=== PATIENT | female | born 1935 | race Caucasian/White ===

== ENCOUNTER → 2023-05-22 11:21 | Outpatient (REF) | payer OTHER, SELFPAY ==
[2023-05-22 12:08] LABS: % Basophils 0.9 % (0-2); % Eosinophils 3.2 % (0-6); % Immature Granulocytes 0.3 % (0-0.5); % Lymphocytes 25.2 % (20.5-51.1); % Monocytes 10.3 % (1.7-9.3); % Neutrophils 60.1 % (42.2-75.2); ALT (SGPT) 12 U/L (0-35); AST (SGOT) 23 U/L (14-36); Absolute Basophils 0.1 10^3/uL (0-0.2); Absolute Eosinophils 0.2 10^3/uL (0-0.7); Absolute Lymphocytes 1.9 10^3/uL (1.2-3.4); Absolute Monocytes 0.8 10^3/uL (0.1-0.6); Absolute Neutrophils 4.5 10^3/uL (1.4-6.5); Albumin 3.5 g/dl (3.5-5.0); Alkaline Phosphatase 67 U/L (38-126); Blood Urea Nitrogen 16 mg/dl (7-17); Calcium 9.1 mg/dl (8.4-10.2); Carbon Dioxide 22 mmol/L (22-30); Chloride 106 mmol/L (98-107); Glucose 96 mg/dl (70-99); HDL Cholesterol 53 mg/dl; Hematocrit 35.6 % (37.0-47.0); Hemoglobin 11.5 g/dL (12.0-16.0); LDL Cholesterol, Calculated 57 mg/dl; Mean Corp Hgb Conc. 32.3 g/dL (33.0-37.0); Mean Corpuscular Hgb 31.6 pg (27.0-31.0); Mean Corpuscular Volume 97.8 fL (81.0-99.0); Mean Platelet Volume 10.4 fL (7.4-10.4); Nucleated Red Blood Cells % 0 %; Platelet Count 233 10^3/uL (130-400); Potassium 4.1 mmol/L (3.5-5.1); Red Blood Cell Count 3.64 10^6/uL (4.20-5.40); Red Cell Dist. Width 14.5 % (11.5-14.5); Sodium 137 mmol/L (135-145); Total Bilirubin 0.6 mg/dl (0.2-1.3); Total Cholesterol 128 mg/dl (50-199); Total Protein 6.1 g/dl (6.3-8.2); Triglyceride 93 mg/dl (10-149); Very Low Density Lipoprotein 18 mg/dl (0-30); White Blood Cell Count 7.5 10^3/uL (4.8-10.8); eGFR > 60.00
[2023-05-22 12:24] LABS: Vitamin D, 25-OH*** 39.3 ng/mL (30-80)
== END ==
LOC: OLABN 11:21
PROVIDERS: ATTENDING PHYSICIAN Internal Medicine Geriatric Medicine
DX: E55.9 Vitamin D deficiency, unspecified (principal); I10 Essential (primary) hypertension; I50.32 Chronic diastolic (congestive) heart failure
CPT/HCPCS: 36415; 80053; 80061; 82306; 85025

== ENCOUNTER → 2023-09-11 16:13 | Outpatient (REF) | payer OTHER, SELFPAY ==
[2023-09-11 18:33] LABS: Urine Albumin 1+ (Neg - Trace); Urine Bilirubin 2+ (Negative); Urine Character Slightly Cloudy (Clear); Urine Color Amber; Urine Glucose Negative (Negative); Urine Ketone 1+ (Negative); Urine Leukocyte 1+ (Negative); Urine Nitrite Positive (Negative); Urine Occult Blood 4+ (Negative); Urine Specific Gravity 1.025 (<1.030); Urine Urobilinogen 1+ (Neg - 1+)
[2023-09-11 18:39] LABS: Urine White Cell 16-20 /HPF (0-5)
[2023-09-11 18:40] LABS: Urine Bacteria Many (Negative)
== END ==
LOC: OLABN 16:13
PROVIDERS: ATTENDING PHYSICIAN Internal Medicine Geriatric Medicine
DX: R30.9 Painful micturition, unspecified (principal); R35.0 Frequency of micturition
CPT/HCPCS: 81003; 81015; 87077; 87086; 87186

== ENCOUNTER 2023-09-13 13:24 | Inpatient (IN) | payer OTHER, SELFPAY ==
[2023-09-13] VITALS (8 sets, daily range): BP systolic 108–131; BP diastolic 59–91
--- NOTE | 2023-09-13 10:51 | ED.GENMED ---
History of Present Illness
<Julita George PA-C - Last Filed: 09/13/23 13:19>
General
Chief Complaint: Change in Mental Status
Source: patient and family (daughter)
Exam Limitations: altered mental status
Time Seen by Provider: 09/13/23 10:37
History of Present Illness
History of Present Illness:
87yoF with a history of dementia, atrial fibrillation on Eliquis, CHF, COPD not on home oxygen, hypertension, hyperlipidemia presenting via EMS with her daughter for evaluation of altered mental status. Patient is a resident at [facility]
skilled nursing. Symptoms initially started 1 week ago. Daughter states that at baseline, patient remembers staff names and is interactive but is forgetful at times. Over the past week, patient has become increasingly confused. She is also less
interactive and having hallucinations which are new for her. The nursing facility checked a urinalysis 2 days ago which indicated a UTI. She was started on Macrobid yesterday and she has had 2 doses thus far. Urine culture from 09/11/23 has returned
growing Klebsiella with resistance to Macrobid. No reported fevers. Patient has no complaints at this time.
Past History
<Julita George PA-C - Last Filed: 09/13/23 13:19>
Past History
ED Past Medical History: Arrthythmia (afib on eliquis), CAD, CHF, COPD, HTN, Hypercholesterolemia and Other (nonischemic cardiomyopathy)
ED Past Surgical History: None and Orthopedic; Negative Cardiac
Social History
Tobacco: Former smoker
Alcohol: Occasional
Drug: None
Personal:
Living: skilled nursing
Employment: Retired
Family History
Family History: Other (Mother with CAD)
Review of Systems
<Julita George PA-C - Last Filed: 09/13/23 13:19>
Review of Systems
Unable to obtain full review of systems at this time due to: other (AMS)
Phy Exam
<Julita George PA-C - Last Filed: 09/13/23 13:19>
General Physical Exam
General Presentation: no apparent distress
General Skin: warm and dry
General Habitus: elderly
Cardiovascular Exam
Cardiovascular Exam: irregularly irregular and tachycardia
Pulmonary Exam
Pulmonary Exam: generalized wheezing (Decreased breath sounds with faint expiratory wheezes. Mild increased WOB.)
Respirations: mild increase in effort
Neurological Exam
Neurological Exam: alert (Oriented to person. Able to state and nursing facility where she resides. Not oriented to time or place. )
Course
<Julita George PA-C - Last Filed: 09/13/23 13:19>
Orders/Labs/Results
Orders:
Orders
09/13/23 10:33
Electrocardiogram (*1) Urgent
Reason for Study: Tachycardia
EKG- Treatment ONCE
09/13/23 10:56
Cardiac Monitoring- Treatment ONCE
Straight cath- Treatment ONCE
0.9% Sodium Chloride 1000 ml [Nss] 1,000 ml IV BOLUS
Pulse Ox/cont/shift [RESP] Urgent
Quantity: 1
09/13/23 10:57
CR Chest Portable - 1 View Urgent
Comment:
Reason For Exam: AMS, hypoxia
Reason Study Needs to be Portable: Unable to Transport
09/13/23 11:00
CT Head W/o Iv Contrast Urgent
Comment:
Reason For Exam: AMS
09/13/23 11:07
Complete Blood Count/With Diff Urgent
Lactic Acid Q4H
Comment: CANCEL 2nd LACTIC ACID IF 1st LACTIC ACID IS LESS THAN 2
09/13/23 11:08
Ammonia Urgent
CMP [Comprehensive Metabolic Panel] Urgent
PTT Urgent
Prothrombin Time Urgent
Troponin I Urgent
Venous Blood Gas Urgent
%Oxygen/Room Air: 2L
Blood Culture Q30M
KEISHA Source: Blood/Venous
Specimen Description:
09/13/23 11:35
Urinalysis Reflex To Culture Urgent
Date Specimen was Collected: 09/13/23
Time Specimen was Collected: 11:23
Urine Microscopic Reflex Cult Urgent
Blood Culture Q30M
KEISHA Source: Blood/Venous
Specimen Description:
Urine Culture Urgent
KEISHA Source: U
Specimen Description:
Date Specimen was Collected: 09/13/23
Time Specimen was Collected: 11:23
09/13/23 12:16
CefTRIAXone [Rocephin] 1,000 mg IV NOW STA
09/13/23 12:37
Cefepime HCl [Maxipime] 2,000 mg IV NOW STA
09/13/23 12:51
Admit/Transfer Patient As Directed
Co-Sign Provider:
Level of Care: Inpatient admission
Assign to:: Medical/Surgical
Physician / Group: Hospitalist
Diagnosis: Confusion
Reason for Hospitalization: .
Expected length of stay greater than two midnights?: Yes
ELOS- Estimated Length of Stay in days: 3
I certify the patient meets the requirements for IP care: Yes
09/13/23 15:00
Lactic Acid Q4H
Comment: CANCEL 2nd LACTIC ACID IF 1st LACTIC ACID IS LESS THAN 2
Abnormal Lab Results
09/13/23 09/13/23 09/13/23
11:07 11:08 11:35
WBC 14.4 H 10^3/uL
(4.8-10.8)
RBC 3.96 L 10^6/uL
(4.20-5.40)
MCH 32.3 H pg
(27.0-31.0)
RDW 15.6 H %
(11.5-14.5)
MPV 11.2 H fL
(7.4-10.4)
Abs Immat Gran (auto) 0.1 H 10^3/uL
(0-0.05)
Absolute Neuts (auto) 12.2 H 10^3/uL
(1.4-6.5)
Absolute Lymphs (auto) 1.0 L 10^3/uL
(1.2-3.4)
Absolute Monos (auto) 1.0 H 10^3/uL
(0.1-0.6)
Immature Gran % 0.6 H %
(0-0.5)
Neutrophils % 84.8 H %
(42.2-75.2)
Lymphocytes % 7.1 L %
(20.5-51.1)
PT 23.6 H Sec
(11.4-14.6)
VBG pO2 63 H mmHg
(30-50)
VBG HCO3 21.6 L mmol/L
(22-27)
Chloride 114 H mmol/L
(98-107)
Carbon Dioxide 21 L mmol/L
(22-30)
BUN 34 H mg/dl
(7-17)
Glucose 123 H mg/dl
(70-99)
Lactic Acid 2.5 H mmol/L
(0.7-2.0)
Total Bilirubin 1.9 H mg/dl
(0.2-1.3)
AST 62 H U/L
(14-36)
Ammonia < 9 L umol/L
(9-30)
Troponin I 0.316 H* ng/ml
Urine Ketones 1+ A
(Negative)
Ur Occult Blood Reflex 3+ A
(Negative)
Urine Nitrite (Reflex) Positive A
(Negative)
Urine Bilirubin 2+ A
(Negative)
Urine Urobilinogen 2+ A
(Neg - 1+)
Leukocyte Esterase Rfl 2+ A
(Negative)
Urine RBC 3-6 A /HPF
(0-2)
Urine WBC (Reflex) 60-70 A /HPF
(0-5)
Urine Bacteria (Reflex) Moderate A
(Negative)
09/13/23 11:07
09/13/23 11:08
Vital Signs
Initial and Last Documented VS:
Initial Vital Signs
Temp Pulse Resp BP Pulse Ox
98.9 F 114 26 108/85 93
09/13/23 10:20 09/13/23 10:20 09/13/23 10:20 09/13/23 10:20 09/13/23 10:20
Last Documented Vital Signs
Temp Pulse Resp BP Pulse Ox
98.9 F 106 25 108/85 96
09/13/23 10:20 09/13/23 10:54 09/13/23 10:54 09/13/23 10:20 09/13/23 10:54
<Manjit Medrano MD - Last Filed: 09/13/23 13:25>
Orders/Labs/Results
Orders:
Orders
09/13/23 10:33
Electrocardiogram (*1) Urgent
Reason for Study: Tachycardia
EKG- Treatment ONCE
09/13/23 10:56
Cardiac Monitoring- Treatment ONCE
Straight cath- Treatment ONCE
0.9% Sodium Chloride 1000 ml [Nss] 1,000 ml IV BOLUS
Pulse Ox/cont/shift [RESP] Urgent
Quantity: 1
09/13/23 10:57
CR Chest Portable - 1 View Urgent
Comment:
Reason For Exam: AMS, hypoxia
Reason Study Needs to be Portable: Unable to Transport
09/13/23 11:00
CT Head W/o Iv Contrast Urgent
Comment:
Reason For Exam: AMS
09/13/23 11:07
Complete Blood Count/With Diff Urgent
Lactic Acid Q4H
Comment: CANCEL 2nd LACTIC ACID IF 1st LACTIC ACID IS LESS THAN 2
09/13/23 11:08
Ammonia Urgent
CMP [Comprehensive Metabolic Panel] Urgent
PTT Urgent
Prothrombin Time Urgent
Troponin I Urgent
Venous Blood Gas Urgent
%Oxygen/Room Air: 2L
Blood Culture Q30M
KEISHA Source: Blood/Venous
Specimen Description:
09/13/23 11:35
Urinalysis Reflex To Culture Urgent
Date Specimen was Collected: 09/13/23
Time Specimen was Collected: 11:23
Urine Microscopic Reflex Cult Urgent
Blood Culture Q30M
KEISHA Source: Blood/Venous
Specimen Description:
Urine Culture Urgent
KEISHA Source: U
Specimen Description:
Date Specimen was Collected: 09/13/23
Time Specimen was Collected: 11:23
09/13/23 12:16
CefTRIAXone [Rocephin] 1,000 mg IV NOW STA
09/13/23 12:37
Cefepime HCl [Maxipime] 2,000 mg IV NOW STA
09/13/23 12:51
Admit/Transfer Patient As Directed
Co-Sign Provider:
Level of Care: Inpatient admission
Assign to:: Medical/Surgical
Physician / Group: Hospitalist
Diagnosis: Confusion
Reason for Hospitalization: .
Expected length of stay greater than two midnights?: Yes
ELOS- Estimated Length of Stay in days: 3
I certify the patient meets the requirements for IP care: Yes
09/13/23 15:00
Lactic Acid Q4H
Comment: CANCEL 2nd LACTIC ACID IF 1st LACTIC ACID IS LESS THAN 2
Abnormal Lab Results
09/13/23 09/13/23 09/13/23
11:07 11:08 11:35
WBC 14.4 H 10^3/uL
(4.8-10.8)
RBC 3.96 L 10^6/uL
(4.20-5.40)
MCH 32.3 H pg
(27.0-31.0)
RDW 15.6 H %
(11.5-14.5)
MPV 11.2 H fL
(7.4-10.4)
Abs Immat Gran (auto) 0.1 H 10^3/uL
(0-0.05)
Absolute Neuts (auto) 12.2 H 10^3/uL
(1.4-6.5)
Absolute Lymphs (auto) 1.0 L 10^3/uL
(1.2-3.4)
Absolute Monos (auto) 1.0 H 10^3/uL
(0.1-0.6)
Immature Gran % 0.6 H %
(0-0.5)
Neutrophils % 84.8 H %
(42.2-75.2)
Lymphocytes % 7.1 L %
(20.5-51.1)
PT 23.6 H Sec
(11.4-14.6)
VBG pO2 63 H mmHg
(30-50)
VBG HCO3 21.6 L mmol/L
(22-27)
Chloride 114 H mmol/L
(98-107)
Carbon Dioxide 21 L mmol/L
(22-30)
BUN 34 H mg/dl
(7-17)
Glucose 123 H mg/dl
(70-99)
Lactic Acid 2.5 H mmol/L
(0.7-2.0)
Total Bilirubin 1.9 H mg/dl
(0.2-1.3)
AST 62 H U/L
(14-36)
Ammonia < 9 L umol/L
(9-30)
Troponin I 0.316 H* ng/ml
Urine Ketones 1+ A
(Negative)
Ur Occult Blood Reflex 3+ A
(Negative)
Urine Nitrite (Reflex) Positive A
(Negative)
Urine Bilirubin 2+ A
(Negative)
Urine Urobilinogen 2+ A
(Neg - 1+)
Leukocyte Esterase Rfl 2+ A
(Negative)
Urine RBC 3-6 A /HPF
(0-2)
Urine WBC (Reflex) 60-70 A /HPF
(0-5)
Urine Bacteria (Reflex) Moderate A
(Negative)
09/13/23 11:07
09/13/23 11:08
Vital Signs
Initial and Last Documented VS:
Initial Vital Signs
Temp Pulse Resp BP Pulse Ox
98.9 F 114 26 108/85 93
09/13/23 10:20 09/13/23 10:20 09/13/23 10:20 09/13/23 10:20 09/13/23 10:20
Last Documented Vital Signs
Temp Pulse Resp BP Pulse Ox
98.9 F 106 25 108/85 96
09/13/23 10:20 09/13/23 10:54 09/13/23 10:54 09/13/23 10:20 09/13/23 10:54
Dklt;Julita George PA-C - Last Filed: 09/13/23 13:19>
MDM/Problems Addressed
Differential Diagnosis Includes:
87yoF presenting from her nursing facility for AMS x 1 week. Recently diagnosed with a UTI and currently on Macrobid. Also hypoxic to 89% prehospital and arrives on 2L NC. Patient with no complaints at this time. HR 114 on arrival. BP stable and she
is afebrile. Patient is oriented to person only. Mild increased WOB with wheezing and decreased air movement noted. Differential diagnosis includes but is not limited to: UTI, sepsis, pneumonia, hypercapnia, electrolyte abnormality
Initial ED plan: Check septic workup, UA, troponin/EKG, CXR, and CT head. IV fluid bolus.
<Julita George PA-C - Last Filed: 09/13/23 13:19>
*EKG
Interpreted by ED Provider?: Yes
EKG Intrepretation Date: 09/13/23
Heart Rate: 129
Rate: tachycardiac
Rhythm: a-fib
[place]: left axis deviation
Ischemia: non-specific ST changes
*Critical Care Note
Total Time (30-74mins, 75-104mins- exclusive of procedures): Not Applicable
Data Reviewed
Review of Other/Old Records Reveals: Labs (Reviewed urine culture data from 2 days ago.)
<Julita George PA-C - Last Filed: 09/13/23 13:19>
Update Note
Update Note:
UA consistent with a UTI. Right sided infilrate also seen on CXR, formal radiology read pending. White count and lactate elevated. Mild elevation in troponin noted, likely demand from sepsis and afib with RVR. IV cefepime given and patient admitted
for further management.
ED Attending Note
<Julita George PA-C - Last Filed: 09/13/23 13:19>
-
Portions of this chart may have been created with voice recognition software.� Occasional wrong word or��sound alike� substitutions may have occurred due to the inherent limitations of voice recognition software.
<Manjit Medrano MD - Last Filed: 09/13/23 13:25>
ED Attending Note
Patient seen and examined by attending physician: Yes
I performed the substantive portion of visit, reviewed & personally made and approve the management plan that is documented in note by myself or SUNITA.: Yes
ED Attending Note:
Patient with progressive weakness lethargy over the past week. Started treatment for UTI yesterday. Some mild hypoxia.
On exam patient is nontoxic in no distress. She is alert but mildly confused. Warm and dry perfusing well. Mild expiratory wheezing. . Warm and dry. Grossly nonfocal. Irregular irregular. Tachycardic
EKG A-fib RVR. Nonspecific changes. CT head negative. Urine positive leukocytosis. Troponin indeterminate likely secondary to sepsis. All consistent with urosepsis. Admission for further care
Discharge Plan
Departure
Patient Disposition: Admit
Date of Disposition: 09/13/23
Time of Disposition: 12:56
Admit to: Med/Surg
Admit to doctor: Dr. Venegas
Presentation/result/management discussed w/ accepting MD/DO: Hospitalist
Discharge Problem:
Sepsis, Urinary tract infection, Elevated troponin I level, Altered mental status, Acute hypoxemic respiratory failure
Prescriptions:
No Action
acetaminophen [Tylenol Extra Strength] 500 MG tablet
1,000 mg PO TID
isosorbide mononitrate 30 MG tablet extended release 24 hr
30 mg PO DAILY
magnesium hydroxide 30 ML suspension
30 ml PO HSPRN PRN (Reason: CONSTIPATION)
bisacodyl [OneLAX Bisacodyl] 10 MG suppository
10 mg AR [id number] PRN (Reason: MOM/LACTULOSE INEFFECTIVE)
metoprolol succinate 100 MG tablet extended release 24 hr
50 mg PO DAILY
escitalopram oxalate 10 mg Tablet
10 mg PO DAILY
diclofenac sodium [Voltaren] 1 % Gel
2 g TOPICAL BID
Eliquis 2.5 mg Tablet
2.5 mg PO BID
diltiazem HCl 120 MG capsule,extended release 24hr
120 mg PO DAILY
sennosides [senna] 8.6 mg Tablet
17.2 mg PO QPM
polyethylene glycol 3350 [Miralax] 17 gram Powder In Packet
17 g PO DAILY
atorvastatin [Lipitor] 10 mg Tablet
10 mg PO HS
famotidine [Pepcid] 20 mg Tablet
20 mg PO DAILY
nitroglycerin [Nitrostat] 0.4 mg Tablet, Sublingual
0.4 mg SUBLINGUAL [id number] PRN (Reason: chest pain)
nitrofurantoin monohyd/m-cryst [Macrobid] 100 mg Capsule
100 mg PO BID
duloxetine [Cymbalta] 30 mg Capsule,Delayed Release(Dr/Ec)
30 mg PO DAILY
cholecalciferol (vitamin D3) 1,250 mcg (50,000 unit) Tablet
1,250 mcg PO QMONTH
Rx Instructions:
every Monday
Gemtesa 75 mg Tablet
75 mg PO QPM
Referrals:
Rodríguez Rock MD [Family Provider] -
Discharge Date and Time
Print Language: TOGOLESE
[2023-09-13] MEDS: NSS 1000 IV ×2 (11:11→14:40)
[2023-09-13 11:22] LABS: % Basophils 0.5 % (0-2); % Eosinophils 0.1 % (0-6); % Immature Granulocytes 0.6 % (0-0.5); % Lymphocytes 7.1 % (20.5-51.1); % Monocytes 6.9 % (1.7-9.3); % Neutrophils 84.8 % (42.2-75.2); Absolute Basophils 0.1 10^3/uL (0-0.2); Absolute Immature Granulocytes 0.1 10^3/uL (0-0.05); Absolute Neutrophils 12.2 10^3/uL (1.4-6.5); Hematocrit 38.7 % (37.0-47.0); Hemoglobin 12.8 g/dL (12.0-16.0); Mean Corp Hgb Conc. 33.1 g/dL (33.0-37.0); Mean Corpuscular Hgb 32.3 pg (27.0-31.0); Mean Corpuscular Volume 97.7 fL (81.0-99.0); Mean Platelet Volume 11.2 fL (7.4-10.4); Nucleated Red Blood Cells % 0.3 %; Platelet Count 185 10^3/uL (130-400); Red Blood Cell Count 3.96 10^6/uL (4.20-5.40); Red Cell Dist. Width 15.6 % (11.5-14.5); White Blood Cell Count 14.4 10^3/uL (4.8-10.8)
[2023-09-13 11:30] LABS: Venous Blood Gas B.E. -3.9 mmol/L (-4 to +4); Venous Blood Gas HCO3 21.6 mmol/L (22-27); Venous Blood Gas O2 Sat % 91.6 %; Venous Blood Gas pCO2 40 mmHg (35-48); Venous Blood Gas pH 7.34 (7.32-7.43); Venous Blood Gas pO2 63 mmHg (30-50)
[2023-09-13 11:32] LABS: INR 2.08; PT 23.6 Sec (11.4-14.6)
[2023-09-13 11:33] LABS: APTT 29.7 Sec (23.4-35.0)
[2023-09-13 11:36] LABS: ALT (SGPT) 30 U/L (0-35); AST (SGOT) 62 U/L (14-36); Albumin 3.9 g/dl (3.5-5.0); Alkaline Phosphatase 74 U/L (38-126); Blood Urea Nitrogen 34 mg/dl (7-17); Calcium 9.5 mg/dl (8.4-10.2); Carbon Dioxide 21 mmol/L (22-30); Chloride 114 mmol/L (98-107); Glucose 123 mg/dl (70-99); Potassium 3.9 mmol/L (3.5-5.1); Sodium 145 mmol/L (135-145); Total Bilirubin 1.9 mg/dl (0.2-1.3); Total Protein 6.6 g/dl (6.3-8.2); eGFR > 60.00
[2023-09-13 11:49] LABS: Troponin I 0.316 ng/ml
[2023-09-13 11:50] LABS: Lactic Acid 2.5 mmol/L (0.7-2.0)
[2023-09-13 11:51] LABS: Urine Albumin Trace (Neg - Trace); Urine Bilirubin 2+ (Negative); Urine Character Clear (Clear); Urine Color Yellow; Urine Glucose Negative (Negative); Urine Ketone 1+ (Negative); Urine Leukocyte 2+ (Negative); Urine Nitrite Positive (Negative); Urine Occult Blood 3+ (Negative); Urine Specific Gravity 1.025 (<1.030); Urine Urobilinogen 2+ (Neg - 1+)
[2023-09-13 11:55] LABS: Ammonia < 9 umol/L (9-30)
[2023-09-13 12:13] LABS: Urine Bacteria Moderate (Negative); Urine Calcium Oxalate Crystals Seen; Urine White Cell 60-70 /HPF (0-5)
--- NOTE | 2023-09-13 12:51 | HPS.HSE ---
Family Physician
-
Family Physician: Rodríguez Rock
Chief Complaint
-
Change in mental status
History of Present Illness
87 years old female came in from retirement facility, [facility]. History taken from family at bedside. Patient has been acting weird per family for a week or so. She was not taking her medications and seeing objects. Lethargic with
decrease in alertness noticed in last a few days. Urine specimen was taken few days ago, cloudy brown in color. Started empirically on Macrobid and she took 2 doses only. In the ER, she was found to have leukocytosis, lactic acidosis, drowsiness,
atrial fibrillation with rapid ventricular response. Bladder scan and straight catheterization drained 50 cc of nicolas-colored urine.
Medical History
Past Medical History
Past Medical History: Reports Other (History of short memory loss/dementia, depression, COPD, hypertension, atrial fibrillation, overactive bladder, coronary artery disease, chronic heart failure with a preserved ejection fraction)
Past Surgical History: Reports Other (No recent major surgery)
Social History
Unable to obtain full social history at this time due to: Dementia
Drug: Former User (Per family)
Personal:
Living: Longterm
Family History
Family History: Not pertinent
Allergies / Home Medications
Allergies reflects when Allergies were last updated in [facility].
Home Medications with original date entered in [facility] [facility]
Allergy/Medication List:
Allergies
Allergy/AdvReac Type Severity Reaction Status Date / Time
No Known Allergies Allergy Verified 09/13/23 10:32
Home Medications
acetaminophen 500 mg tablet (Tylenol Extra Strength) 1,000 mg PO TID Pain 03/18/19
bisacodyl 10 mg rectal suppository (OneLAX Bisacodyl) 10 mg NC [id number] PRN MOM/LACTULOSE INEFFECTIVE 07/08/21
isosorbide mononitrate 30 mg tablet,extended release 24 hr 30 mg PO DAILY Heart disease/condition 07/08/21
magnesium hydroxide 400 mg/5 mL oral suspension 30 ml PO HSPRN PRN CONSTIPATION 07/08/21
metoprolol succinate 100 mg tablet,extended release 24 hr 50 mg PO DAILY Blood pressure 07/08/21
apixaban 2.5 mg tablet (Eliquis) 2.5 mg PO BID Blood clot prevention/tx 03/23/22
diclofenac sodium 1 % topical gel 2 g topical BID TO LOWER BACK FOR PAIN 03/23/22
diltiazem HCl 120 mg capsule,extended release 24 hr 120 mg PO DAILY Blood pressure 03/23/22
escitalopram oxalate 10 mg tablet 10 mg PO DAILY Mental Health/Anxiety 03/23/22
atorvastatin 10 mg tablet (Lipitor) 10 mg PO HS 09/13/23
cholecalciferol (vitamin D3) 1,250 mcg (50,000 unit) tablet 1,250 mcg PO QMONTH 09/13/23
duloxetine 30 mg capsule,delayed release (Cymbalta) 30 mg PO DAILY 09/13/23
famotidine 20 mg tablet (Pepcid) 20 mg PO DAILY 09/13/23
nitrofurantoin monohydrate/macrocrystals 100 mg capsule (Macrobid) 100 mg PO BID uti 09/13/23
nitroglycerin 0.4 mg sublingual tablet (Nitrostat) 0.4 mg sublingual [id number] PRN chest pain 09/13/23
polyethylene glycol 3350 17 gram oral powder packet (Miralax) 17 g PO DAILY 09/13/23
sennosides 8.6 mg tablet (senna) 17.2 mg PO QPM 09/13/23
vibegron 75 mg tablet (Gemtesa) 75 mg PO QPM 09/13/23
Review of Systems
-
Unable to obtain full review of systems at this time due to: Other (Patient is lethargic but she denied abdominal pain or chest pain)
Physical Exam
Vital Signs
Vital Signs
Temp Pulse Resp BP Pulse Ox
98.9 F 106 25 108/85 96
06/26/24 10:20 09/13/23 10:54 09/13/23 10:54 09/13/23 10:20 09/13/23 10:54
Physical Exam
General: No Apparent Distress and Appears Chronically Ill
HEENT: Other (Dry mucous membrane)
Respiratory: Decreased Breath Sounds
Cardiac: S1/S2, Irregular Rhythm and Tachycardia
GI: Soft, Non Tender and Non Distended
Rectal: No Maroon Stools
Genito-urinary: No Bloody Urine
Musculoskeletal: No Clubbing, No Cyanosis and No Edema
Skin: No Jaundice
Neuro: Other ( Patient is lethargic. At 1 point she woke up and answered simple questions but was mostly drowsy)
Psych: Other (Lethargic)
Laboratory Results
-
09/13/23 11:07
09/13/23 11:08
Laboratory Results
PT 23.6 Sec (11.4-14.6) H 09/13/23 11:08
INR 2.08 09/13/23 11:08
APTT 29.7 Sec (23.4-35.0) 09/13/23 11:08
Lactic Acid 2.5 mmol/L (0.7-2.0) H 09/13/23 11:07
Total Bilirubin 1.9 mg/dl (0.2-1.3) H 09/13/23 11:08
AST 62 U/L (14-36) H 09/13/23 11:08
ALT 30 U/L (0-35) 09/13/23 11:08
Alkaline Phosphatase 74 U/L (38-126) 09/13/23 11:08
Troponin I 0.316 ng/ml H* 09/13/23 11:08
Impression/Plan
-
87-year-old female present with change in mental status
#Severe sepsis with lactic acidosis
Patient presented with leukocytosis, tachycardia, lactic acidosis, evidence of urinary tract infection, encephalopathy
Admit the patient to the hospital
Continuous cardiac telemetry monitoring
Give the patient IV fluid as patient is a clinically dehydrated has not been eating well for a few days with poor oral intake. No hypotension in the emergency room but her blood pressure is borderline low
Trend lactic acidosis
Blood and urine culture
Empiric intravenous cefepime pending results of the culture as source likely urinary tract infection. Patient denied abdominal pain. Bladder scan did not show retention
Monitor response, monitor temperature curve
Hold oral intake due to risk of aspiration from encephalopathy
# Toxic metabolic encephalopathy on underlying cognitive impairment
History of dementia, likely Alzheimer versus vascular dementia
Supportive care
Aspiration precaution
Treated primary infection
Scan of the head no acute finding
# Permanent atrial fibrillation with rapid ventricular response.
Patient was not taking her medications due to acute illness
Due to risk of aspiration, hold oral medications. Start the patient on intravenous Cardizem with cardiac monitoring and titration of medicine as blood pressure tolerates
She was not taking her pills appropriately. Will do IV heparin while n.p.o.
Resume Eliquis when possible.
CHADSVASC 5 ( age,HTN, female,CHF) on Eliquis in outpatient setting
# History of coronary artery disease. No chest pain. No acute ischemic changes on EKG. Trend troponin. Troponin elevation consistent with nonmyocardial infarction
# History of chronic heart failure with preserved ejection fraction. Currently she is dehydrated clinically
Give mild IV fluids and reassess.
# Essential hypertension. Hold oral medication. She will be on IV Cardizem.
# Chronic ambulatory dysfunction. Uses wheelchair
# CODE STATUS. DNR, confirmed with family
Total critical time spent to see the patient on the floor, examine the patient, review data and lab results, discuss treatment plan with patient, ER doctor, family, nursing staff around 85 minutes
[2023-09-13] MEDS: MAXIPIME 2000 MG IV (13:24)
[2023-09-13 16:36] LABS: Hematocrit 36.9 % (37.0-47.0); Hemoglobin 11.8 g/dL (12.0-16.0); Mean Corpuscular Hgb 32.8 pg (27.0-31.0); Mean Corpuscular Volume 102.5 fL (81.0-99.0); Mean Platelet Volume 11.2 fL (7.4-10.4); Platelet Count 154 10^3/uL (130-400); Red Cell Dist. Width 15.7 % (11.5-14.5); White Blood Cell Count 13.5 10^3/uL (4.8-10.8)
[2023-09-13 16:47] LABS: APTT 32.4 Sec (23.4-35.0)
[2023-09-13] MEDS: D5/0.9% SODIUM CHLORIDE 1000 IV (17:59)
[2023-09-13] MEDS: HEPARIN 25000 UNITS/250 ML IV (18:02)
[2023-09-13] MEDS: CARDIZEM 125 IV (18:02)
[2023-09-13 21:14] LABS: Troponin I 0.263 ng/ml
[2023-09-14] VITALS (7 sets, daily range): BP systolic 109–139; BP diastolic 63–87; PULSE 100; O2SAT 98
[2023-09-14 00:26] LABS: APTT 109.7 Sec (23.4-35.0)
[2023-09-14] MEDS: MAXIPIME 1000 MG IV ×2 (01:35→13:32)
[2023-09-14] MEDS: STERILE WATER FOR INJECTION 10 ML IV ×2 (01:40→13:32)
[2023-09-14] MEDS: D5/0.9% SODIUM CHLORIDE 1000 IV (06:03)
[2023-09-14 07:18] LABS: APTT 129.7 Sec (23.4-35.0)
[2023-09-14 08:26] LABS: Hematocrit 35.9 % (37.0-47.0); Mean Corp Hgb Conc. 33.4 g/dL (33.0-37.0); Mean Corpuscular Hgb 32.8 pg (27.0-31.0); Mean Corpuscular Volume 98.1 fL (81.0-99.0); Mean Platelet Volume 11.2 fL (7.4-10.4); Platelet Count 162 10^3/uL (130-400); Red Blood Cell Count 3.66 10^6/uL (4.20-5.40); Red Cell Dist. Width 15.9 % (11.5-14.5); White Blood Cell Count 12.3 10^3/uL (4.8-10.8)
--- NOTE | 2023-09-14 08:30 | PTOTSP ---
Speech Language Pathology
Pt seen for clinical bedside swallow evaluation. Limited assessment given limited acceptance and cognitive status. P.O. trials of puree and thin liquids provided. Delayed initiation of oral management. Delayed cough and increase in wet breath
sounds noted with thin liquids. No overt signs of aspiration with puree.
Recommend:
(1) NPO
(2) Allow meds crushed in puree
(3) Will hold on Aspiration Risk Hydration Protocol (ARHP) given cognitive status and significant dried oral secretions
(4) Oral care 4x/day with suctioning as needed
(5) LAN ADMINISTRATOR to continue to follow
[2023-09-14 08:43] LABS: Blood Urea Nitrogen 28 mg/dl (7-17); Calcium 8.8 mg/dl (8.4-10.2); Carbon Dioxide 19 mmol/L (22-30); Chloride 122 mmol/L (98-107); Estimated Creatinine Clearance 51 ml/min; Glucose 132 mg/dl (70-99); Potassium 3.4 mmol/L (3.5-5.1); Sodium 148 mmol/L (135-145); eGFR > 60.00
--- NOTE | 2023-09-14 09:44 | W.PN.HOSP.TC ---
Today's Communication/Plan
-
IVF, change to D5W
Replace K
IV Cefepime
re-introduce oral medications slowly
Aspiration precautions.
Assessment / Plan
Assessment / Plan
Physical Exam
General: No Apparent Distress and Appears Chronically Ill
HEENT: Other (Dry mucous membrane)
Respiratory: Decreased Breath Sounds
Cardiac: S1/S2, Irregular Rhythm and less Tachycardia
GI: Soft, Non Tender and Non Distended
Rectal: No Maroon Stools
Genito-urinary: No Bloody Urine
Musculoskeletal: No Clubbing, No Cyanosis and No Edema
Skin: No Jaundice
Neuro: Other ( Patient is more alert today, still not following commands.
Psych: Other (less Lethargic). Confused.
87-year-old female present with change in mental status
#Severe sepsis with lactic acidosis
Patient presented with leukocytosis, tachycardia, lactic acidosis, evidence of urinary tract infection, encephalopathy
Urine culture on September 10 revealed Klebsiella that is susceptible to cefepime.
Await Blood cultures.
White count is coming down. No fever. Mentation is more alert but still confused and not following commands
Continue with IV fluids and supportive care.
# Toxic metabolic encephalopathy on underlying cognitive impairment
History of dementia, likely Alzheimer versus vascular dementia
Supportive care
Aspiration precaution
Discussed with speech, okay with medications in applesauce
Treat primary infection
Scan of the head no acute finding
Eventual PT/OT
#Hypernatremia, will change IV fluid to hypotonic
# Hypokalemia, replace
# Permanent atrial fibrillation with rapid ventricular response.
Patient was not taking her medications due to acute illness
Heart rate is better. Will introduce oral metoprolol slowly and oral Cardizem.
Discussed with speech, okay for oral medications with applesauce. Will stop IV heparin and resume Eliquis
CHADSVASC 5 ( age,HTN, female,CHF) on Eliquis in outpatient setting
# History of coronary artery disease. No chest pain. No acute ischemic changes on EKG. Trend troponin went down. Troponin elevation consistent with nonmyocardial infarction
# History of chronic heart failure with preserved ejection fraction. Currently she is NPO and remains dehydrated clinically
Give mild IV fluids and monitor weight
# Essential hypertension. Resume oral medications as Bp tolerates.
# Chronic ambulatory dysfunction. Uses wheelchair
# CODE STATUS. DNR, confirmed with family.
Total time spent to see the patient on the floor, examine the patient, review data and lab results, discuss treatment plan with patient, nursing staff around 55 minutes
Anticipated Discharge: > 48 hours
Subjective/Interval History
-
Date of Service: September 14, 2023
No fevers
More alert, still confused
Objective Data
-
Labs:
Laboratory Results
09/14/23 09/14/23 09/14/23
00:03 06:49 08:03
WBC Cancelled 12.3 H
Hgb Cancelled 12.0
Hct Cancelled 35.9 L
Plt Count Cancelled 162
APTT 109.7 H 129.7 H
Sodium Cancelled 148 H
Potassium Cancelled 3.4 L
Chloride Cancelled 122 H
Carbon Dioxide Cancelled 19 L
BUN Cancelled 28 H
Creatinine Cancelled 0.6
Glucose Cancelled 132 H
Calcium Cancelled 8.8
09/14/23
15:30
WBC
Hgb
Hct
Plt Count
APTT Pending
Sodium
Potassium
Chloride
Carbon Dioxide
BUN
Creatinine
Glucose
Calcium
Vital Signs:
Vital Signs
Temp Pulse Resp BP Pulse Ox
97.4 F 104 20 127/73 95
09/14/23 07:00 09/14/23 07:00 09/14/23 07:00 09/14/23 07:00 09/14/23 07:00
I&O
09/13/23 09/14/23 09/15/23
06:59 06:59 06:59
Intake Total 1120 / 1120
Output Total 0 / 0
Balance 1120 / 1120
--- NOTE | 2023-09-14 10:34 | CM ---
CM spoke with Bereket from admissions at [facility], patient is a LTC resident on a 15 day [place] bed hold, will need PT/OT to see patient for auth to return skilled, referral sent in [facility]. Per Bereket, patient self propels from wheelchair, assist of
one with walker, assist of one with ADLS. Patient PCP Dr. Rock, pharmacy [facility] in [place]. CM will continue to follow for all discharge planning needs.
Plan; return to [facility] when stable, need PT/OT to do auth for patient to return skilled.
[2023-09-14] MEDS: ELIQUIS 2.5 MG PO ×2 (10:44→20:15)
[2023-09-14] MEDS: LOPRESSOR 25 MG PO ×2 (10:44→20:15)
[2023-09-14] MEDS: D5W 1000 IV ×2 (11:28→21:42)
[2023-09-14] MEDS: KCL 270 MEQ IV (11:28)
--- NOTE | 2023-09-14 16:10 | PTCARENOTE ---
Patient awake today, frequently yelling out 'hello'. Seen by speech, diet order changed to NPO , meds crushed in applesauce. Tolerated without difficulty. Frequent mouth care given. IV Heparin dc'd, IV Cardizem continues, heart rate tachy from
100- 105. K 3.3 , IVF admin as ordered. Incontinent of B+B. Head of bed at 3 degrees at all times. Frequent checks maintained. Pt did ask 'where are the kids' , needs emotional support. Family in to visit.
[2023-09-15] MEDS: MAXIPIME 1000 MG IV (01:27)
[2023-09-15] MEDS: STERILE WATER FOR INJECTION 10 ML IV (01:28)
[2023-09-15 03:30] VITALS: BP 148/102
[2023-09-15 06:00] VITALS: BMI 24.9
[2023-09-15 07:12] LABS: Hematocrit 38.5 % (37.0-47.0); Hemoglobin 12.7 g/dL (12.0-16.0); Mean Corpuscular Hgb 32.2 pg (27.0-31.0); Mean Corpuscular Volume 97.7 fL (81.0-99.0); Platelet Count 155 10^3/uL (130-400); Red Blood Cell Count 3.94 10^6/uL (4.20-5.40); Red Cell Dist. Width 15.9 % (11.5-14.5); White Blood Cell Count 14.4 10^3/uL (4.8-10.8)
[2023-09-15 07:20] VITALS: BP 133/86
[2023-09-15] MEDS: D5W 1000 IV (07:20)
[2023-09-15] MEDS: LOPRESSOR PO (07:35)
[2023-09-15] MEDS: ELIQUIS PO ×2 (07:35→08:06)
[2023-09-15 07:50] LABS: Glucose - Point of Care 136 mg/dl (70-99)
[2023-09-15 08:08] LABS: Blood Urea Nitrogen 27 mg/dl (7-17); Carbon Dioxide 13 mmol/L (22-30); Chloride 116 mmol/L (98-107); Estimated Creatinine Clearance 44 ml/min; Glucose 142 mg/dl (70-99); Potassium 4.3 mmol/L (3.5-5.1); Sodium 140 mmol/L (135-145); eGFR > 60.00
[2023-09-15] MEDS: LASIX 40 MG IV (08:12)
[2023-09-15 08:24] LABS: B.E. -7.1 mmol/L; O2 Saturation % 98.3 % (94-98); PCO2 25 mmHg (32-35); PO2 77 mmHg (83-108); pH 7.41 (7.35-7.45)
[2023-09-15 08:27] LABS: HCO3 15.8 mmol/L (21-28)
--- NOTE | 2023-09-15 08:35 | PTOTSP ---
Speech Language Pathology
Pt seen for dysphagia tx. Decreased responsiveness this date with increased RR. When called name, eyes looked to upper R quadrant without visual fixation. Oral care set up and suction toothbrush utilized. Dried bloody secretions noted throughout
oral cavity, removed as much as possible. Pt with facial grimacing in response to oral care. Trialed 1/4 tsp of puree, which pt spit out. Further P.O. trials deferred given cognitive status. Pt is going for HCT.
Recommend:
(1) Strict NPO (not appropriate for P.O. meds this date)
(2) Oral care 4x/day with suctioning as needed
(3) Not appropriate for Aspiration Risk Hydration Protocol (ARHP) currently
(4) MACHINIST OUTSIDE to continue to follow
--- NOTE | 2023-09-15 10:20 | W.PN.HOSP.TC ---
Addendum entered and electronically signed by Ivette Venegas MD 09/15/23 11:14:
Addendum
Family at bed side ( , daughters, son in law)
Explained clinical status, likely worsening heart failure due to acute illness, sepsis.
They want comfort care and hospice. No blood work
Dc Echo and cardiology consult.
Will consult CM for hospice, will need inpt hospice
Give stat IV morphine
End
Original Note:
Today's Communication/Plan
-
Worsening status
Stat CT head
Stat Chest x ray
Stat ABG
Stat Troponin
IV Lasix
Stop IVF
Strict NPO
Updated family
Assessment / Plan
Assessment / Plan
Physical Exam
General: In respiratory Distress, minimally responsive. Appears Chronically Ill
HEENT: Other (Dry mucous membrane)
Respiratory: Decreased Breath Sounds with crackles.
Cardiac: S1/S2, Irregular Rhythm and Tachycardia
GI: Soft, Non Tender and Non Distended
Rectal: No Maroon Stools
Genito-urinary: No Bloody Urine
Musculoskeletal: No Clubbing, No Cyanosis and No Edema
Skin: No Jaundice
Neuro: Lethargic, not opening eyes, not following commands.
Psych:s Lethargic, obtunded
87-year-old female present with change in mental status
# Toxic metabolic encephalopathy on underlying cognitive impairment
Worsening mentation. Unable to open eyes or respond. Obtunded.
Will do stat CAT scan of the head to rule out intracranial bleeding since she is on systemic anticoagulant
No evidence of worsening infection. No fever.
Start chest x-ray to rule out aspiration. Aspiration precautions. Strict n.p.o.
Continue supportive care
Check ABg to rule out high CO2
History of dementia, likely Alzheimer versus vascular dementia
Scan of the head on admission showed moderate atrophy with no acute findings
#Severe sepsis with lactic acidosis
Patient presented with leukocytosis, tachycardia, lactic acidosis, evidence of urinary tract infection, encephalopathy
Worsening overnight. Doubt worsening infection since no fever and white count to continue to decline.
On appropriate antibiotics and negative blood cultures
#Hypernatremia resolved with hypotonic fluid
# Hypokalemia, replaced
# Permanent atrial fibrillation with rapid ventricular response.
Patient was not taking her medications due to acute illness
Uncontrolled with tachycardia , increase Cardizem drip to 7.5 mg an hour fixed rate
She received IV heparin while n.p.o. and we resumed Eliquis yesterday
PATVASC 5 ( age,HTN, female,CHF) on Eliquis in outpatient setting
Will consult cardiology
# History of coronary artery disease. No chest pain. No acute ischemic changes on EKG. Trend troponin went down. Troponin elevation consistent with nonmyocardial infarction
Recheck troponin.
# Acute on chronic heart failure with preserved and recovered low ejection fraction.
Given mild IV fluids while NPO
She seems in heart failure , will give stat Lasix and do chest x ray
# Essential hypertension. Resume oral medications as Bp tolerates.
# Chronic ambulatory dysfunction. Uses wheelchair
# CODE STATUS. DNR, confirmed with family.
Total critical time spent to see the patient on the floor, examine the patient, review data and lab results, discuss treatment plan with patient, family nursing staff around 75 minutes
Anticipated Discharge: > 48 hours
Subjective/Interval History
-
Date of Service: September 15, 2023
Objective Data
-
Labs:
Laboratory Results
09/15/23 09/15/23
06:35 08:12
WBC 14.4 H
Hgb 12.7
Hct 38.5
Plt Count 155
HCO3 15.8 L*
Sodium 140 D
Potassium 4.3 D
Chloride 116 H
Carbon Dioxide 13 L*
BUN 27 H
Creatinine 0.7
Glucose 142 H
Calcium 9.0
Vital Signs:
Vital Signs
Temp Pulse Resp BP Pulse Ox
99.0 F 150 18 139/83 93
09/15/23 07:20 09/15/23 08:12 09/15/23 07:20 09/15/23 08:12 09/15/23 07:20
I&O
09/14/23 09/15/23 09/16/23
06:59 06:59 06:59
Intake Total 1120 / 1120 1330 / 1330
Output Total 0 / 0
Balance 1120 / 1120 1330 / 1330
[2023-09-15 10:46] VITALS: BP 131/91
[2023-09-15] MEDS: MORPHINE SULFATE 2 MG IV ×4 (11:07→14:35)
--- NOTE | 2023-09-15 11:59 | CM ---
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
Oxygen 2 liter POx 97%.
Mostly unresponsive.
MD placed order for hospice.
Spoke with and daughters. All agreed with Hospice.
Spoke with [facility] about referral and placed in care port.
PLAN Comfort/ Hospice care. .
[2023-09-15] MEDS: STERILE WATER FOR INJECTION IV (13:01)
[2023-09-15] MEDS: MAXIPIME IV (13:01)
--- NOTE | 2023-09-15 13:45 | HOSPNOTE ---
Spoke with family about end of life decisions. The patient is actively dying and asked admissions for a private room on [address]. The patients feet are mottled, patient is unresponsive and is receiving morphine IV pushes for resp distress. At the
time of my assessment patient received morphine for elevated heart rate and shortness of breath. I believe patient will pass quickly and spoke with Attending Dr Venegas and the patient will remain comfort and will admit onto hospice tomorrow if
patient is still with us. Will include update in my weekend report. Case Management aware of plan.
[2023-09-15 15:39] VITALS: BMI 24.9
[2023-09-15] MEDS: MORPHINE 100 IV (16:40)
[2023-09-15] MEDS: MORPHINE SULFATE 1 MG IV ×2 (21:49→23:10)
[2023-09-16] MEDS: MORPHINE SULFATE 1 MG IV ×5 (00:15→10:23)
[2023-09-16 00:42] VITALS: BP 105/75
[2023-09-16] MEDS: LOPRESSOR 2.5 MG IV (00:49)
[2023-09-16 03:43] VITALS: BP 104/74
[2023-09-16 05:19] VITALS: BP 62/49
--- NOTE | 2023-09-16 09:30 | W.PN.HOSP.TC ---
Today's Communication/Plan
-
c/w comfort care
Assessment / Plan
Assessment / Plan
Physical Exam
General: sedated, Chronically Ill
HEENT: Other (Dry mucous membrane)
Respiratory: low RR
Cardiac: S1/S2, Irregular Rhythm and Tachycardia
GI: Non Distended
Rectal: No Maroon Stools
Genito-urinary: No Bloody Urine
Musculoskeletal: Peripheral Cyanosis
Skin: No Jaundice
Neuro: sedated
Psych:s sedated
87-year-old female present with change in mental status
# Toxic metabolic encephalopathy, history of dementia.
#Severe sepsis with lactic acidosis
# Permanent atrial fibrillation with rapid ventricular response.
# History of coronary artery disease.
# Acute on chronic heart failure with preserved and recovered low ejection fraction.
# Essential hypertension.
# Chronic ambulatory dysfunction. Uses wheelchair
# CODE STATUS. DNR, confirmed with family.
Clinical status deteriorated and family wanted to pursue patient's wishes. Patient on comfort/ end of life care now. c/w morphine gtt and titrate to help with air hunger and tachycardia.
Total time spent to see the patient on the floor, examine the patient, review data and lab results, discuss treatment plan with family, nursing staff around 55 minutes
Anticipated Discharge: Within 24 hours
Subjective/Interval History
-
Date of Service: September 16, 2023
On morphine gtt
Objective Data
-
Vital Signs:
Vital Signs
Temp Pulse Resp BP Pulse Ox
98.0 F 166 12 62/49 97
09/15/23 10:46 09/16/23 03:43 09/16/23 05:19 09/16/23 05:19 09/15/23 10:46
I&O
09/15/23 09/16/23 09/17/23
06:59 06:59 06:59
Intake Total 1330 / 1330 0 / 0
Balance 1330 / 1330 0 / 0
--- NOTE | 2023-09-16 10:45 | HOSPNOTE ---
Patient remains on comfort level of care. Patient is presently comfortable on current regimen of morphine infusion at 3 mg/hr with morphine 3 mg IVP PRN Q20min as well. I called and spoke to the daughter Natasha De La Rosa. Offered emotional support and end
of life support. They are ready for patient to pass and are wondering why she is still holding on. Active listening provided. I called and spoke to admissions as well, patient is planned to be to moved to [address] [place] [address] once a bed is available. I updated
primary RN. Update also provided to attending who is in agreement to keep patient on comfort care as appears to be imminent. Hospice will continue to follow for support.
--- NOTE | 2023-09-16 10:48 | PTCARENOTE ---
MD Venegas, primary RN, environmental tech felt patient needed continuos morphine dose to be increased from 2mg/hr to 3mg/hr due to frequent overnight PRN dose needs and increasing RR. RN explained to the family that now that she is on 3mg/hr of the continuos
medication, her PRN doses will now be 3mg each time. This dose puts her on 'step 3' of the end of life protocol. Primary RN and environmental tech spoke with family about reaching out to us if they feel patient looks distressed or is continuing to have
labored breathing.
[2023-09-16 11:27] VITALS: BP 104/78
[2023-09-16] MEDS: MORPHINE SULFATE 3 MG IV ×3 (12:26→14:23)
--- NOTE | 2023-09-16 13:51 | CM ---
Case josé luis met with daughter, Natasha De La Rosa and she is requesting to speak with hospice nurse, [facility] nurse notified and will be in to see patient.
Plan; Comfort measures/hospice.
--- NOTE | 2023-09-16 14:31 | HOSPNOTE ---
Hospice Nurse Michelle stopped by to see patient and speak to family. Family was grateful for Michelle stopping by to assess patient and explain the dying process. Informal report with primary nurse Gina as well. Reviewed that patient is presently
comfortable on morphine infusion that is now increased to 4 mg/hr with 4 mg q20 min ivp prn. Reviewed that is imminent. Much emotional support provided. Updated Dr. Venegas as well who agrees with the above plan. Hospice will continue to follow
for support. Still awaiting bed availability on .
--- NOTE | 2023-09-16 15:00 | PTCARENOTE ---
Patients family growing increasingly distressed about patients imminent , family keeps asking for RN to give more morphine, family states 'they just want her to go'. Pt is snoring and not air hungry, RN reinforced with patient's family end of
life protocol and that morphine is given according to patient end of life symptoms when they become unmanageable or the patient becomes distressed and that giving morphine outside of protocol would be unethical for RN as it could speed up dying
process artificially. clerk came to floor to speak with family and go over end of life plan of care and family became less anxious, daughter Natasha De La Rosa offered hug to primary RN stating she was sorry she was so anxious and that seeing her mom
like this is just so difficult. RN stated that she understood this was a very difficult time for her and the family, and that she her goal is to make patient safe and comfortable.
[2023-09-16] MEDS: ROBINUL 0.200000000000000011 MG IV (15:46)
--- NOTE | 2023-09-16 16:59 | W.PN.DEATH ---
Pronouncement of
-
Called to see patient to pronounce.
No spontaneous heart tones or respirations noted.
Patient not responsive to verbal stimuli.
Patient is pronounced .
Time of : 16:10
Date of : 09/16/23
Family Notified: Yes
--- NOTE | 2023-09-16 17:35 | PTCARENOTE ---
Patient at 1610, hospitalist Milton notified. [facility] called and patient is not and organ donation candidate. Family took all of patients belongings/jewelry home. Post mortem care performed.
--- NOTE | 2023-09-17 06:51 | W.DCSUMMARY ---
Discharge Summary
Discharge Data
Date of Admission: 09/13/23
Date of Discharge: 09/16/23
-
Pending Results: No
Hospital Course
87 years old female presented with change in mental status and hypoxia. Patient was found to have atrial fibrillation with rapid ventricular response, toxic metabolic encephalopathy. Patient was lethargic and weak on admission. Family reported
decline in functional status over the last few months/weeks. She was recently treated for urinary tract infection at the custodial. Patient was not taking her medications and was showing signs of advanced dementia. Patient was started on
intravenous antibiotics and rate control medications. She received oxygen supplementation. Blood culture did not show any growth. Her mentation continued to worsen and she was unable to to swallow. Patient went into acute congestive heart
failure status. She became obtunded. Family decided to pursue comfort care in the hospital. Patient was evaluated by hospice nurse and she was started on intravenous morphine drip. Patient peacefully surrounded by her family.
Discharge Plan
-
Patient Disposition:
Date/Time
Date/Time: 09/16/23 16:10
Discharge Date and Time
Discharge Date/Time: 09/16/23 17:50
Print Language: ETHIOPIAN
== END 2023-09-16 17:50 | disposition expired | DRG 871 ==
LOC: 4 WEST ACU 13:24
PROVIDERS: Physician Assistant; ADMITTING PHYSICIAN Internal Medicine; EMERGENCY PHYSICIAN Emergency Medicine; FAMILY PHYSICIAN Internal Medicine Geriatric Medicine
DX: A41.9 Sepsis, unspecified organism (principal); G92.8 Other toxic encephalopathy; I50.33 Acute on chronic diastolic (congestive) heart failure; I48.21 Permanent atrial fibrillation; E87.20 Acidosis, unspecified; N39.0 Urinary tract infection, site not specified; I5A Non-ischemic myocardial injury (non-traumatic); E87.0 Hyperosmolality and hypernatremia; Z66 Do not resuscitate; Z51.5 Encounter for palliative care; I11.0 Hypertensive heart disease with heart failure; F03.90 Unspecified dementia, unspecified severity, without behavioral disturbance, psychotic disturbance, mood disturbance, and anxiety; J44.9 Chronic obstructive pulmonary disease, unspecified; F32.A Depression, unspecified; N32.81 Overactive bladder; R65.20 Severe sepsis without septic shock; T50.916A Underdosing of multiple unspecified drugs, medicaments and biological substances, initial encounter; Z91.148 Patient's other noncompliance with medication regimen for other reason; I25.10 Atherosclerotic heart disease of native coronary artery without angina pectoris; E87.6 Hypokalemia; R26.89 Other abnormalities of gait and mobility; Z79.01 Long term (current) use of anticoagulants; Z79.899 Other long term (current) drug therapy
CPT/HCPCS: 36600; 51701; 70450; 71045; 80048; 80053; 81003; 81015; 82140; 82805; 82962; 83605; 83735; 84484; 85025; 85027; 85610; 85730; 87040; 87086; 92526; 92610; 93005; 96361; 96374; 96375; 97163; 99285